=== PATIENT | male | born 1930 | race Caucasian/White ===

== ENCOUNTER 2017-08-17 10:48 | Emergency (ER) | payer MEDICARE, BC ==
[2017-08-17 11:23] VITALS: BP 186/70
--- NOTE | 2017-08-17 11:56 | UC ---
UC General HPI - HPI Summary HPI Summary: Pt is accompanied by son. Pt reports gradual onset of generalized malaise, cough, chest and nasal congestion, chills and fatigue X 2 days. - History of Current Complaint Chief Complaint: UCRespiratory Stated Complaint: SINUS COMPLAINT Time Seen by Provider: 08/17/17 11:40 Hx Obtained From: Patient Onset/Duration: Gradual Onset, Lasting Days, Still Present Timing: Constant Onset Severity: Mild Current Severity: Moderate Pain Intensity: 0 Associated Signs & Symptoms: Positive: Cough - Allergy/Home Medications Allergies/Adverse Reactions: Allergies Allergy/AdvReac Type Severity Reaction Status Date / Time No Known Allergies Allergy Verified 08/17/17 11:23 Home Medications: Home Medications Allopurinol TAB* [Zyloprim 100 MG TAB*] 100 mg PO DAILY 08/17/17 [History Confirmed 08/17/17] Amlodipine Besylate [Norvasc 5 mg tab] 5 mg PO DAILY 08/17/17 [History Confirmed 08/17/17] Insulin REGULAR(*) 0 units SUBCUT AC 08/17/17 [History Confirmed 08/17/17] Levothyroxine TAB* [Synthroid TAB*] 1 tab PO QAM 08/17/17 [History Confirmed 12/27] LoraTADine TAB(NF) [Claritin 10 MG TAB(NF)] 10 mg PO DAILY 08/17/17 [History Confirmed 08/17/17] Simvastatin 1 tab PO QAM 08/17/17 [History Confirmed 08/17/17] Terazosin CAP* [Hytrin CAP*] 1 mg PO BEDTIME 08/17/17 [History Confirmed ] guaiFENesin LIQ* [Robitussin*] 5 mg PO Q4H PRN 08/17/17 [History Confirmed 08/17] PMH/Surg Hx/FS Hx/Imm Hx Previously Healthy: No Endocrine History: Diabetes Cardiovascular History: Cardiac Disease, Hypertension - Surgical History Surgical History: Yes Surgery Procedure, Year, and Place: carotid arteries x 2; brain tumor benign 1984 - Family History Known Family History: Positive: Cardiac Disease - Social History Occupation: Retired Lives: With Family Alcohol Use: None Substance Use Type: None Smoking Status (MU): Former Smoker Have You Smoked in the Last Year: No Review of Systems Constitutional: Chills, Fatigue Skin: Negative Eyes: Negative ENT: Sinus Congestion, Sinus Pain/Tenderness Respiratory: Cough Cardiovascular: Negative Gastrointestinal: Negative Genitourinary: Negative Motor: Negative Neurovascular: Negative Musculoskeletal: Edema - bilateral lower extremities Neurological: Negative Psychological: Negative Is Patient Immunocompromised?: No All Other Systems Reviewed And Are Negative: Yes Physical Exam Triage Information Reviewed: Yes Appearance: Ill-Appearing, Other: - pale complexion, alert, Vital Signs: Initial Vital Signs Temp 99.5 F 08/17/17 11:09 Pulse 74 08/17/17 11:09 Resp 20 08/17/17 11:09 BP 186/70 08/17/17 11:09 Pulse Ox 94 08/17/17 11:09 Vital Signs Reviewed: Yes Eye Exam: Normal ENT Exam: Other ENT: Positive: Nasal congestion, Sinus tenderness Dental Exam: Other - mutlitple mssing teeth Neck exam: Normal Respiratory Exam: Normal Respiratory: Positive: Normal breath sounds, No respiratory distress Cardiovascular Exam: Normal Musculoskeletal Exam: Other Musculoskeletal: Positive: Edema @ - 1+ piting edema, bilateral lower Neurological Exam: Normal Psychological Exam: Normal Skin Exam: Normal Course/Dx - Course Course Of Treatment: I discussed with the pt the need to follow up with his PCP immediately and to seek care at the closest ER if symptoms worsen. Pt denies SOB , worsening LE dependent edema, or chest pain. Pt verbalized understanding and agreed to plan of care. I doris discussed with the pt his elevated BP. Pt stated that he has white coat syndrome and that his BP is always elevated at the DR's office. - Differential Dx - Multi-Symptom Differential Diagnoses: Other Provider Diagnoses: sinusitis Discharge - Sign-Out/Discharge Documenting (check all that apply): Discharge - Discharge Plan Condition: Stable Disposition: HOME Prescriptions: Amoxicillin PO (*) [Amoxicillin 875 MG (*)] 875 mg PO Q12H #20 tab Patient Education Materials: Sinusitis (ED), Acute Bronchitis (ED) Referrals: Anthony David DO [Primary Care Provider] - Additional Instructions: Please follow up with your PCP as soon as possible. If symptoms do not improve or worsen, please seek care at the closest Emergency Room as soon as possible. - Billing Disposition and Condition Condition: STABLE Disposition: HOME
== END 2017-08-17 12:22 | disposition home or self-care (01) ==
LOC: UCCORT 10:48
DX: J32.9 Chronic sinusitis, unspecified (principal); E11.9 Type 2 diabetes mellitus without complications; Z79.4 Long term (current) use of insulin; Z87.891 Personal history of nicotine dependence; I10 Essential (primary) hypertension; I51.9 Heart disease, unspecified
CPT/HCPCS: 99202; G0463